=== PATIENT | male | born 1945 | race Caucasian/White ===

== ENCOUNTER → 2019-12-09 15:46 | Outpatient (REF) | payer MEDICARE, SELFPAY | LOC: ANHLAB 15:46 | PROVIDERS: PCP Emergency Medicine; Visit Provider Nurse Practitioner | DX: L57.0 Actinic keratosis (principal); D23.9 Other benign neoplasm of skin, unspecified; L92.8 Other granulomatous disorders of the skin and subcutaneous tissue | CPT/HCPCS: 88305; 88342 ==

== ENCOUNTER 2022-02-21 09:14 | Outpatient (CLI) | payer MEDICARE, SELFPAY ==
--- NOTE | ~2022-02-21 | XR_ITS ---
Right Hand Technique: PA, oblique, and lateral views were obtained. Clinical History: Fifth digit pain Findings: No acute fracture or dislocation is seen. Osseous alignment is anatomic. Joint spaces are p reserved. Extensive vascular calcifications noted. Impression: No acute abnormality. Extensive vascular calcifications. Reviewed, dictated and finalized at location [] [facility] Impression: No acute abnormality. Extensive vascular calcifications.
== END 2022-02-21 09:15 | disposition home or self-care (01) ==
LOC: ANHBWCIMG 09:16
PROVIDERS: PCP Family Medicine; Visit Provider Family Medicine
DX: M79.644 Pain in right finger(s) (principal); I99.9 Unspecified disorder of circulatory system
CPT/HCPCS: 73130

== ENCOUNTER 2022-06-27 10:04 | Emergency (ER) | payer MEDICARE, SELFPAY ==
--- NOTE | ~2022-06-27 | XR_ITS ---
Right foot Technique: AP, oblique, and lateral views were obtained. Clinical History: Wound Findings: There is been prior amputation of the distal phalanx of the great toe, and the phalanges of the presumed second digit. There is been probable partial amputation of the presumed fourth metatars al, as well as apparent complete amputation of the fifth digit. There is extensive degenerative nazario e throughout the midfoot articulations with suggestion of displacement laterally of the second and th ird metatarsals, suggestive of underlying Lisfranc ligament disruption. There is patchy sclerosis thr oughout the osseous structures. Mild diffuse soft tissue swelling noted. Impression: No definite radiographic evidence for osteomyelitis, but exam is limited given extensive postoperativ e change and probable severe Charcot foot/degenerative changes throughout the midfoot. Suspected underlying Lisfranc ligament disruption with probable lateral displacement of the second an d third metatarsals. Numerous prior amputations, as detailed above. Correlate with history. Reviewed, dictated and finalized at [facility]. Impression: No definite radiographic evidence for osteomyelitis, but exam is limited given extensive postoperative change and probable severe Charcot foot/degenerative ch anges throughout the midfoot. Suspected underlying Lisfranc ligament disruption with probable lateral displac ement of the second and third metatarsals. Numerous prior amputations, as detailed above. Correlate with history.
[2022-06-27 10:24] VITALS: BP 171/67; PULSE 56; RESP 16; O2SAT 100
[2022-06-27 13:43] LABS: Basophils Percent Auto 0.5 % (0.2-1.2); Eosinophils Absolute Auto 0.2 K/mm3 (0-0.3); Eosinophils Percent Auto 2.2 % (0-4.4); Hematocrit 33.2 % (42.0-52.0); Hemoglobin 10.7 g/dL (14.0-18.0); Immature Granulocyte Absolute 0.03 K/mm3 (0.00-0.031); Immature Granulocyte Percent A 0.4 % (0-0.5); Lymphocytes Absolute Auto 1.39 K/mm3 (0.9-3.2); Lymphocytes Percent Auto 17.7 % (18.3-44.2); Mean Corpuscular HGB Conc 32.2 g/dl (32-36); Mean Corpuscular Hemoglobin 32.3 pg (26-34); Mean Corpuscular Volume 100.3 fl (80-100); Mean Platelet Volume 10.2 fl (7.4-10.4); Monocytes Absolute Auto 0.6 K/mm3 (0.1-0.6); Monocytes Percent Auto 7.5 % (2.6-8.5); Neutrophils Absolute Auto 5.6 K/mm3 (1.3-6.7); Neutrophils Percent Auto 71.7 % (45.5-73.1); Platelet Count Result 206 k/mm3 (150-375); Red Blood Count 3.31 M/mm3 (4.6-6.20); Red Cell Distribution Width 13.3 % (11.5-14.5); White Blood Count 7.8 K/mm3 (4.5-10.0)
[2022-06-27 13:55] LABS: Anion Gap 6 mmol/L (8-16); Blood Urea Nitrogen 19 mg/dL (9-20); Calcium 9.1 mg/dL (8.4-10.2); Carbon Dioxide 29 mmol/L (22-30); Chloride 101 mmol/L (98-107); Estimated CRCL calculation 66 ml/min; Estimated Glomerular Filt Rate > 60; Glucose 99 mg/dL (65-110); Potassium 4.9 mmol/L (3.4-5.0); Sodium 136 mmol/L (137-145)
--- NOTE | 2022-06-27 15:27 | ED.LOWEXIN ---
HPI - Extremity Injury (Lower) General Chief Complaint: Extremity Injury, Lower Stated Complaint: right toe injury, sent by PCP Time Seen by Provider: 06/27/22 10:43 History of Present Illness HPI Narrative: Patient is a 76-year-old male who presents ER due to concerns regarding a wound on his right great toe. Patient has history of vascular disease and had multiple amputations of his left leg as well as digits of his right foot. Couple months ago he underwent amputation of the second digit on the foot on the right and developed a wound to the great toe afterwards. He has been getting wound care and Medicare is no longer pay for it and he was discharged from it 3 days ago. They have been applying topical antibiotic. They are concerned that is not healing and there is a piece of bone exposed. They have not been able to go follow-up with the patient's vascular surgeon. He was referred to the ER by his PCP for lab work. Patient has no fevers or chills or sweats. No necrosis or fetid odor from the wound. He has no additional concerns. Related Data Allergies Allergy/AdvReac Type Severity Reaction Status Date / Time No Known Allergies Allergy Verified 03/18/22 13:44 Review of Systems Review of Systems: All systems reviewed & are unremarkable except as noted in HPI and below Constitutional: Constitutional: Denies chills, Denies fatigue and Denies fever(s) ENT: Denies nasal congestion and Denies sore throat Musculoskeletal: Musculoskeletal: Denies arthralgias and Denies joint swelling Integumentary/Breasts: Skin/Breast: Denies pruritus, Denies rash and Reports skin ulcer (Right great toe) [facility] Past Medical History Medical History (Updated 06/27/22 @ 15:33 by Iftikhar Posada MD) Cancer of neck 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 Surgical History Surgical History (Updated 10/08/21 @ 11:40 by Devin Moncada MD) History of open heart surgery Social History Social History (Updated 02/06/22 @ 08:51 by Keysha Magaña MA) Smoking status: Never smoker Alcohol intake: current Alcohol use details: Wine 1 glass at lunch Substance use: never Substance use type: does not use Lack of Transportation: No Lack of Food: Never True Current Housing: I Have Housing Concerned About Future Housing: No Difficulty Paying Gas/Electric Bills: No Difficulty Paying for Meds: No Currently Unemployed: No Education: Trade/Vocational Certificate Difficulty w/ Childcare or Family Care: No Living arrangements: with family Additional occupation/education comments: Retired Gender identity (if verbalized by the patient): Male Agree to blood products: Yes Exam Narrative: GENERAL: Well-appearing, well-nourished, and in no acute distress. HEAD: Normocephalic, atraumatic. CHEST: Clear to auscultation. No respiratory distress. HEART: Regular rate and rhythm. Normal peripheral pulses. EXTREMITIES: Right lower extremity specifically foot with multiple missing toes due to previous surgeries. There is an ulceration to the great toe with some bone exposed. No purulence, there is topical medication applied from home. No cellulitis to the toe or lymphangitic streaking. No foul odor. Left lower extremity prosthesis due to previous BKA. SKIN: Warm, dry, no rash. NEURO: Alert and oriented x3. PSYCH: Normal mood and affect. Course Course Emergency Course: Patient resting comfortably. Him and family informed of imaging and lab results. Changes on the x-ray all felt to be chronic in nature. Patient will be started on cefuroxime and recommend he follow-up with his vascular surgeon for further care. Vital Signs Vital signs: Vital Signs Pulse Rate 56 L 06/27/22 10:24 Respiratory Rate 16 06/27/22 10:24 Blood Pressure 171/67 H 06/27/22 10:24 Pulse Oximetry 100 06/27/22 10:24 Pulse Rate 60 06/27/22 16:02 Respiratory Rate 16 06/27/22 16:02 Blood Pressure
[2022-06-27 16:01] VITALS: PULSE 60; RESP 6; O2SAT 100
[2022-06-27 16:02] VITALS: BP 226/78; PULSE 60; RESP 16; O2SAT 100
== END 2022-06-27 16:18 | disposition home or self-care (01) ==
PROVIDERS: Emergency Provider Emergency Medicine; PCP Family Medicine
DX: L98.8 Other specified disorders of the skin and subcutaneous tissue (principal); I70.201 Unspecified atherosclerosis of native arteries of extremities, right leg; Z89.612 Acquired absence of left leg above knee; Z89.421 Acquired absence of other right toe(s); Z85.828 Personal history of other malignant neoplasm of skin
CPT/HCPCS: 36415; 73630; 80048; 85025; 99283

== ENCOUNTER 2024-01-08 15:37 | Outpatient (CLI) | payer MEDICARE, SELFPAY ==
[2024-01-08 16:47] LABS: Hematocrit 29.6 % (42.0-52.0); Hemoglobin 9.5 g/dL (14.0-18.0); Mean Corpuscular HGB Conc 32.1 g/dl (32-36); Mean Corpuscular Hemoglobin 33.2 pg (26-34); Mean Corpuscular Volume 103.5 fl (80-100); Mean Platelet Volume 10.8 fl (7.4-10.4); Platelet Count Result 174 k/mm3 (150-375); Red Blood Count 2.86 M/mm3 (4.6-6.20); Red Cell Distribution Width 14.3 % (11.5-14.5); White Blood Count 6.1 K/mm3 (4.5-10.0)
[2024-01-08 17:30] LABS: Alanine Aminotransferase 12 U/L (6-50); Albumin Level 4.4 g/dL (3.5-5.1); Alkaline Phosphatase 93 U/L (38-126); Anion Gap 11 mmol/L (4-12); Aspartate Amino Transferase 24 U/L (17-59); Bilirubin,Total 0.8 mg/dL (0.2-1.3); Blood Urea Nitrogen 24 mg/dL (9-20); Carbon Dioxide 28 mmol/L (22-30); Chloride 99 mmol/L (98-107); Estimated Glomerular Filt Rate 59; Glucose 92 mg/dL (65-110); Iron 40 ug/dL (49-181); Potassium 4.8 mmol/L (3.4-5.0); Sodium 138 mmol/L (137-145)
[2024-01-08 17:39] LABS: Percent Iron Saturation 13 % (20-50)
[2024-01-08 17:42] LABS: Hemoglobin A1C 5.9 % (<5.7)
[2024-01-08 17:58] LABS: Prostate Specific Antigen 0.8 ng/mL (< OR = 4.0)
== END 2024-01-08 15:38 | disposition home or self-care (01) ==
PROVIDERS: PCP Family Medicine; Visit Provider Family Medicine
DX: C76.0 Malignant neoplasm of head, face and neck (principal); D64.9 Anemia, unspecified; R79.89 Other specified abnormal findings of blood chemistry; E11.9 Type 2 diabetes mellitus without complications; I70.201 Unspecified atherosclerosis of native arteries of extremities, right leg; Z89.612 Acquired absence of left leg above knee; Z98.890 Other specified postprocedural states; Z12.5 Encounter for screening for malignant neoplasm of prostate
CPT/HCPCS: 36415; 80053; 82728; 83036; 83540; 83550; 84153; 84443; 85027; G0103